=== PATIENT | male | born 1945 | race Caucasian/White ===

== ENCOUNTER 2016-06-16 00:02 | Emergency (ER) | payer BC, MEDICARE ==
[2016-06-16] MEDS ORDERED: Aspirin Low Dose CHEW TAB* 81 MG PO ONE (00:38)
[2016-06-16] MEDS ORDERED: Morphine INJ* 4 MG/ML 1 ML CARPUJECT IV ONE (00:48)
[2016-06-16 00:51] LABS: Hematocrit 43 % (42-52); Hemoglobin 14.6 g/dl (14.0-18.0); Mean Corpuscular HGB Conc 34 g/dl (31-36); Mean Corpuscular Hemoglobin 32 pg (27-31); Mean Corpuscular Volume 93 fL (80-94); Mean Platelet Volume 7 um3 (7.4-10.4); Red Blood Count 4.62 10^6/ul (4.0-5.4); Red Cell Distribution Width 14 % (10.5-15); White Blood Count 7.4 10^3/ul (3.5-10.8)
[2016-06-16 01:02] LABS: BUN/Creatinine Ratio 8.9 (8-20); Calcium 9.2 mg/dL (8.6-10.3); EGFR African American 124.7 (>60); Globulin 2.8 g/dL (2-4); Potassium 3.5 mmol/L (3.5-5.0); Total Bilirubin 0.4 mg/dL (0.2-1.0); Total Protein 6.8 g/dL (6.4-8.9)
[2016-06-16 01:04] LABS: Troponin I 0.02 ng/mL (<0.04)
--- NOTE | 2016-06-16 01:14 | ED ---
Amparo Brown Claudia, scribed for Woo Escobar MD on 06/16/16 at 0009 . HPI Chest Pain - HPI Summary HPI Summary: 71 year old male presents to he ED with CP. Pt was admitted to [facility] on Jun 03, 2016 for AFib. He notes that he is experiencing similar Sx to that episode currently. Pt describes the mid-sternal CP as a dull ache and states it is currently about a 2/10. He notes pain is aggravated with deep breaths. He is being followed by Dr. Hancock whom he saw last week. Pt is also scheduled for a pace maker on Sunday. Pt takes Eliquis for PMHx of AFib. Pt noted that he thought the pain would go away when he went to bed so when it didn't he became concerned and decided to come to the ED. - History of Current Complaint Hx Obtained From: Patient Onset/Duration: Started Hours Ago - about 15:00 today, Still Present Timing: Constant Pain Scale Used: 0-10 Numeric - 2/10 Chest Pain Location: Mid Sternal Chest Pain Radiates: No Character: Dull/Aching Aggravating Factor(s): Deep Breaths Alleviating Factor(s): Nothing Associated Signs and Symptoms: Positive: Chest Pain. Negative: Fever, Chills - Allergy/Home Medications Allergies/Adverse Reactions: Allergies Allergy/AdvReac Type Severity Reaction Status Date / Time No Known Allergies Allergy Verified 05/24/16 09:31 PMH/Surg Hx/FS Hx/Imm Hx Previously Healthy: Yes Endocrine/Hematology History: Denies: Hx Diabetes, Hx Thyroid Disease Cardiovascular History: Denies: Hx Hypertension, Hx Pacemaker/ICD, Hx Peripheral Vascular Disease Respiratory History: Denies: Hx Asthma, Hx Chronic Obstructive Pulmonary Disease (COPD) GI History: Denies: Hx Ulcer History: Denies: Hx Renal Disease Musculoskeletal History: Denies: Hx Arthritis Sensory History: Reports: Hx Contacts or Glasses Denies: Hx Hearing Aid Opthamlomology History: Reports: Hx Contacts or Glasses Neurological History: Denies: Hx Headaches, Hx Seizures, Hx Transient Ischemic Attacks (TIA) Psychiatric History: Denies: Hx Anxiety, Hx Panic Disorder - Surgical History Surgery Procedure, Year, and Place: 2 HERNIA SURGERYS Infectious Disease History: Denies: Hx Hepatitis, Hx Human Immunodeficiency Virus (HIV) - Family History Known Family History: Positive: None, Hypertension Family History: denies cardio-vascular or clotting disorders in family lineage - Social History Occupation: Employed Full-time Lives: Alone Alcohol Use: Daily Alcohol Amount: 3 glasses wine Substance Use Type: Reports: None Smoking Status (MU): Heavy Every Day Tobacco Smoker Type: Cigarettes Have You Smoked in the Last Year: Yes Review of Systems Negative: Fever, Chills, Skin Diaphoresis Eyes: Negative ENT: Negative Positive: Chest Pain Respiratory: Negative Gastrointestinal: Negative Genitourinary: Negative Musculoskeletal: Negative Skin: Negative Neurological: Negative Psychological: Normal All Other Systems Reviewed And Are Negative: Yes Physical Exam Triage Information Reviewed: Yes Vital Signs On Initial Exam: Initial Vitals Temp Pulse Resp BP Pulse Ox 97.3 F 76 21 176/88 98 06/16/16 00:09 06/16/16 00:09 06/16/16 00:09 06/16/16 00:09 06/16/16 00:09 Vital Signs Reviewed: Yes Appearance: Positive: Well-Appearing, No Pain Distress Skin: Positive: Warm Head/Face: Positive: Normal Head/Face Inspection Eyes: Positive: YASMINE ENT: Positive: Hearing grossly normal Neck: Positive: Supple Respiratory/Lung Sounds: Positive: Clear to Auscultation, Breath Sounds Present Cardiovascular: Positive: Normal. Negative: Murmur Abdomen Description: Positive: Nontender, Soft Bowel Sounds: Positive: Present Musculoskeletal: Positive: Strength/ROM Intact Neurological: Positive: Sensory/Motor Intact, Alert, Oriented to Person Place, Time Psychiatric: Positive: Affect/Mood Appropriate Diagnostics - Vital Signs Vital Signs Temp Pulse Resp BP Pulse Ox 06/16/16 00:53 20 06/16/16 00:09 97.3 F 76 21 176/88 98 - Laboratory Lab Results: Lab Results 06/16/16 06/16/16 06/16/16 Range/Units 00:15 00:15 00:15 WBC 7.4 (3.5-10.8) 10^3/ul RBC 4.62 (4.0-5.4) 10^6/ul Hgb 14.6 (14.0-18.0) g/dl Hct 43 (42-52) % MCV 93 (80-94) fL MCH 32 H (27-31) pg MCHC 34 (31-36) g/dl RDW 14 (10.5-15) % Plt Count 243 (150-450) 10^3/ul MPV 7 L (7.4-10.4) um3 Neut % (Auto) 64.6 (38-83) % Lymph % (Auto) 25.3 (25-47) % [place] % (Auto) 7.9 (1-9) % Eos % (Auto) 1.7 (0-6) % Baso % (Auto) 0.5 (0-2) % Absolute Neuts (auto) 4.7 (1.5-7.7) 10^3/ul Absolute Lymphs (auto) 1.9 (1.0-4.8) 10^3/ul Absolute Monos (auto) 0.6 (0-0.8) 10^3/ul Absolute Eos (auto) 0.1 (0-0.6) 10^3/ul Absolute Basos (auto) 0 (0-0.2) 10^3/ul Absolute Nucleated RBC 0 10^3/ul Nucleated RBC % 0.1 Sodium 135 (133-145) mmol/L Potassium 3.5 (3.5-5.0) mmol/L Chloride 107 (101-111) mmol/L Carbon Dioxide 28 (22-32) mmol/L Anion Gap 0 L (2-11) mmol/L BUN 7 (6-24) mg/dL Creatinine 0.79 (0.67-1.17) mg/dL Est GFR ( Amer) 124.7 (>60) Est GFR (Non-Af Amer) 97.0 (>60) BUN/Creatinine Ratio 8.9 (8-20) Glucose 84 (70-100) mg/dL Lactic Acid 1.0 (0.5-2.0) mmol/L Calcium 9.2 (8.6-10.3) mg/dL Total Bilirubin 0.40 (0.2-1.0) mg/dL AST 16 (13-39) U/L ALT 10 (7-52) U/L Alkaline Phosphatase 50 (34-104) U/L Troponin I 0.02 (<0.04) ng/mL Total Protein 6.8 (6.4-8.9) g/dL Albumin 4.0 (3.2-5.2) g/dL Globulin 2.8 (2-4) g/dL Albumin/Globulin Ratio 1.4 (1-3) Pertinent Lab Values Are: WNL Result Diagrams: 06/16/16 00:15 06/16/16 00:15 Lab Statement: Any lab studies that have been ordered have been reviewed, and results considered in the medical decision making process. - Radiology CHEST XRAY Xray Interpretation: No Acute Changes Radiology Interpretation Completed By: ED Physician - EKG 00:05 Cardiac Rate: NL EKG Rhythm: Sinus Rhythm - 74 beats/min EKG Interpretation: Left Anterior Hemiblock Re-Evaluation - Re-Evaluation First Eval Re-Evaluation Time: 04:15 - pt pain free, trop neg x 2 will d/c f/u pcp Change: Improved Chest Pain Course/Dx - Course Assessment/Plan: Pt presents with CP. After troponin measurements within nml limits, and a CXR and EKG within nml limits. Pt is agreeable with plan to be d/ c home with follow-up appt with Dr. Hancock. - Diagnoses Provider Diagnoses: Chest pain Discharge - Discharge Plan Condition: Improved Disposition: HOME Patient Education Materials: Chest Pain (ED) Referrals: Vitaly Hancock MD [Medical Doctor] - 2 Days (Please follow-up) The documentation as recorded by the Amparo lazar Claudia accurately reflects the service I personally performed and the decisions made by Shawn ohara David, MD.
[2016-06-16 02:12] LABS: Magnesium 2.2 mg/dL (1.9-2.7)
[2016-06-16 04:26] VITALS: BP 178/86
--- NOTE | 2016-06-16 07:32 | RAD ---
INDICATION: Chest pain COMPARISON: Similar chest x-ray dated June 03, 2016 TECHNIQUE: PA and lateral views of the chest were obtained. FINDINGS: The heart and mediastinum are normal in size and contour. Similar to the prior chest x-ray the lungs are hyperaerated, the diaphragm flattened and there is an enlarged retrosternal airspace. Multifocal subcentimeter round densities seen throughout both lungs are most consistent with calcified granulomas, similar in appearance to the previous chest x-ray. Coarse calcification overlying the bilateral tish is consistent with calcified granulomatous change of the lymph nodes. Otherwise the lungs are grossly clear. There is no evidence of large pleural effusion. Visualized bones are normal for the patient's age. There is no radiographic evidence of free air beneath the diaphragm IMPRESSION: CHRONIC FINDINGS INCLUDE STIGMATA OF CHRONIC OBSTRUCTIVE PULMONARY DISEASE AND APPEARANCE OF CALCIFIED GRANULOMATOUS DISEASE.
== END 2016-06-16 04:31 | disposition home or self-care (01) ==
LOC: ED 00:02
DX: R07.9 Chest pain, unspecified (principal); F17.210 Nicotine dependence, cigarettes, uncomplicated
CPT/HCPCS: 36415; 71020; 80053; 83605; 83735; 84484; 85025; 93005; 96374; 99283; A9270-GY; J2270

== ENCOUNTER 2016-06-20 08:09 | Observation (INO) | payer BC, MEDICARE ==
[2016-06-20] MEDS ORDERED: Diazepam TAB(*) 5 MG ONE (08:47)
[2016-06-20] MEDS ORDERED: ceFAZolin VIAL 1 GM in NS *SYRINGE * * 10 ML ONE (09:00)
[2016-06-20] MEDS ORDERED: ceFAZolin 2 GM PREMIX (*) 2 GM/50 ML BAG IVPB ONE (09:00)
[2016-06-20] MEDS ORDERED: Lidocaine 1% INJ* 10 MG/ML 30 ML SDV ONE (09:20)
[2016-06-20] MEDS ORDERED: Midazolam* 1 MG/ML 5 ML VIAL (5 MG) ONE (09:22)
[2016-06-20] MEDS ORDERED: fentaNYL* 50 MCG/ML 2 ML VIAL (100 MCG VIAL) ONE (09:22)
[2016-06-20] MEDS ORDERED: Acetaminophen TAB* 325 MG PO PRN ×2 (10:35→10:43)
[2016-06-20] MEDS ORDERED: oxyCODONE/Acetamin 5/325 MG* TAB PO PRN (10:35)
[2016-06-20] MEDS ORDERED: Nicotine PATCH 21 MG/24 HR* PATCH ONE (11:12)
--- NOTE | 2016-06-20 11:59 | RAD ---
Indication: Post pacemaker placement. Comparison: June 16, 2016 Technique: Upright AP 1115 hours Report: RIGHT atrial and RIGHT ventricular level pacemaker leads extend from the newly placed LEFT chest wall pacemaker. Negative for pneumothorax. Mild RIGHT basilar subsegmental atelectasis. Negative for pleural effusions. Negative for cardiomegaly. Unremarkable central pulmonary vasculature. IMPRESSION: Mild RIGHT basilar atelectasis. No evidence for pneumothorax or pulmonary edema post dual chamber pacemaker placement.
--- NOTE | 2016-06-20 12:17 | OP ---
DATE OF OPERATION: 06/20/2016 - ROOM #442 DATE OF : 1945. SURGEON: Cliff Campo MD. ANESTHESIA: Local anesthesia with conscious sedation. PRE-OP DIAGNOSIS: Atrial fibrillation, sick sinus syndrome. POST-OP DIAGNOSIS: Atrial fibrillation, sick sinus syndrome. OPERATIVE PROCEDURE: Dual chamber pacemaker implantation. ESTIMATED BLOOD LOSS: Nil. COMPLICATIONS: None. INDICATION: The patient is a 71-year-old gentleman who was recently admitted to the hospital with atrial fibrillation. The patient had significant pauses after conversion from atrial fibrillation to sinus rhythm. At one point, he had a 13 second pause. Permanent pacemaker implantation was recommended. DESCRIPTION OF PROCEDURE: The patient was brought to the operating room in a fasting state. Informed consent had been obtained prior to the procedure. All labs have been reviewed. The patient was placed supine on the procedure table. His left deltopectoral area was cleaned and draped in the usual fashion. One percent Lidocaine was used for local anesthesia. Under ultrasound guidance, the axillary vein was entered via a modified Seldinger technique and a guidewire was placed. A second guidewire was placed under same technique. A 3 cm incision was made in the pectoral area and blunt dissection was carried down to the pectoral fascia. A pocket was formed for the pacemaker. Over the first guidewire, a 7-Macanese sheath introducer was placed through which a right ventricular lead was advanced to the RV apex. The right ventricular lead is a Medtronic model 5076, serial number [id number]. It had an R-wave sensitivity of 8.7, impedance 1,154 ohms, a threshold 1 volt at 0.5 msec. The ventricular lead was sutured to the pectoral fascia using 0 silk. Over the second guidewire , a 7-Macanese sheath introducer was placed through which a right atrial lead was advanced to the high right atrium. The right atrial lead is a Medtronic, model 5076, serial number [id number]. It had a P-wave sensitivity of 1.7, impedance 613 ohms, a threshold of 0.9 volts at 0.5 msec. The atrial lead was then sutured to the pectoral fascia using 0 silk. The pocket was flushed with antibiotic infused normal saline and a generator was attached appropriately to the atrial and ventricular leads. The generator is a MedCohuman model A2DR01, serial number [id number]. The device was placed into the pocket. The surgical incision was closed in three layers. The subcutaneous tissue was closed with 2- 0 and 3-0 absorbable sutures. The skin was closed with alpa. The pacemaker was then interrogated via an external analyzer before sterile field was broken. The device was noted to be functioning normally. The patient was returned to the holding area in stable condition. THIS IS AN MRI COMPATIBLE DEVICE. [id number]/[facility] #: [id number] [facility] CENTERKrystian
[2016-06-20] MEDS: Cephalexin CAP* 250 MG PO SCH ×3 (13:04→21:06)
[2016-06-20] MEDS ORDERED: Nicotine Patch Removal NOTE PATCH OFF SCH (21:00)
[2016-06-20] MEDS: Dronedarone TAB* 400 MG PO SCH (21:06)
[2016-06-21 07:41] VITALS: BP 150/87
[2016-06-21] MEDS ORDERED: Nicotine PATCH 21 MG/24 HR* PATCH TRANSDERM SCH (08:00)
[2016-06-21] MEDS: Dronedarone TAB* 400 MG PO SCH (08:01)
[2016-06-21] MEDS: Cephalexin CAP* 250 MG PO SCH (08:01)
--- NOTE | 2016-06-21 08:48 | RAD ---
INDICATION: Device implant COMPARISON: June 20, 2016 TECHNIQUE: PA and lateral dual-energy views were obtained. FINDINGS: Bones/Soft Tissues: There are no acute bony findings. There is recent left cardiac pacemaker placement. There is no interval change Cardiomediastinal: The cardiomediastinal silhouette is normal. Lungs: There are no infiltrates. There are calcified granulomas. There is hyperinflation with mild chronic interstitial change. There is no pneumothorax. Pleura: There are no pleural effusions. Other: None IMPRESSION: LEFT CARDIAC PACEMAKER PLACEMENT. NO PNEUMOTHORAX. NO VASCULAR CONGESTION.
[2016-06-21] MEDS ORDERED: Magnesium Oxide TAB* 400 MG PO SCH (09:00)
[2016-06-21] MEDS ORDERED: Influenza VAC *QUAD* 2016-17* 0.5 ML SYRINGE IM ONE (09:00)
--- NOTE | 2016-06-21 21:32 | DS ---
DISCHARGE SUMMARY: DATE OF ADMISSION: 06/20/16 DATE OF DISCHARGE: 06/21/16 HISTORY OF PRESENT ILLNESS: Mr. Perez is a 71-year-old with a history of paroxysmal atrial fibrillation who was additionally found to have sick sinus syndrome with pauses of 9 to 13 seconds post cardioversion (slow sinus node recovery time). The patient was admitted for elective dual chamber pacemaker implantation. He had held his Naprosyn and Eliquis prior to the procedure. On 06/20/16, the patient underwent pacemaker implantation without incident ( Medtronic Advisa DR MRI compatible device.) See history of present illness for full details of past medical history. Past medical history includes paroxysmal atrial fibrillation, presumed COPD. He is an active smoker. He drinks 3 to 4 glasses of wine a day as well. PHYSICAL EXAMINATION: On exam the day of discharge, the patient is 5 feet 11 inches, weighs 162 pounds with a BMI of 23. T-max 98.1. The patient is in sinus rhythm, occasional PVCs and some pseudofusion beats in the ventricles. Blood pressure 150/87, pulse in 60s to 80s. General appearance: Tall, lean older gentleman, kyphoscoliosis incidentally noted, in no acute distress. Psychologically, calm, cooperative, pleasant. Neurologically, awake, alert, oriented to person, place and time. Cranial nerves II through XII intact. Grossly normal sensory and motor function in the upper and lower extremities. Gait is normal in the room. Skin: Warm and dry. The incision in the left subclavian fossa is free of any evidence of infection. There is a small hematoma in the anterior portion of the pocket. No active bleeding in the incision and no ecchymosis. HEENT: Mucous membranes moist. Neck without appreciable increased JVP. Breath sounds have some fine wheezing. Coronary: S1, S2 regular without murmurs or rubs. Prominent PMI with no evidence of diaphragmatic pacing. Abdomen: Active bowel sounds. Soft and nontender. Lower extremities: Marked superficial varicosities noted but otherwise unremarkable. LABORATORY DATA: From 06/16/16 showed white count 7.4, hemoglobin 14.6 and platelets 243. Sodium 135, potassium 3.5, chloride 107, BUN 7, creatinine 0.79 , glucose 84. HOSPITAL COURSE: Overnight the patient did well, minimal incisional tenderness. He has been walking this morning and feeling well. No shortness of breath. IMAGING STUDIES: The patient's chest x-ray shows hyperinflation consistent with COPD. Lead placement is good. Pacemaker interrogation today confirms the use of Medtronic Advisa DR. He was re- programmed from DDD to AAI/DDD with a lower rate of 60 beats a minute and upper tracking rate of 130 beats per minute. Overnight, he atrially paced 39% of the time and ventricularly paced less than 0.1% of the time. P-waves are sensed at 3 millivolts with an atrial impedance of 437 ohms and atrial pacing threshold of 0.5 volts at 0.4 milliseconds. R-waves are sensed at 11 millivolts with a ventricular lead impedance of 627 ohms and a ventricular pacing threshold of 0.75 volts at 0.4 milliseconds. There were no dysrhythmias overnight. In summary, Mr. Perez is a 71-year-old gentleman who underwent dual chamber pacemaker implantation yesterday. He is postop day #1 with good pacemaker function, very small hematoma noted. He will be discharged on Tylenol p.r.n., Keflex 250 mg four times a day, Multaq 400 mg twice a day, magnesium oxide 400 mg a day, nicotine patch, Tylenol with Codeine p.r.n., and he will resume his Eliquis in 48 hours. Smoking cessation was advised personally by me but the patient states it is his only vivian in life. He will follow up with Dr. Campo in 1 week for wound check and then follow back up with Dr. Hancock in approximately a month. CC: Karin Rose MD; Lalo Hancock DO * [id number]/[facility] #: [id number] [facility]
== END 2016-06-21 10:06 | disposition home or self-care (01) ==
LOC: CHICATH 08:09 → MEDTELE 10:35 → INTOOBSV 10:35
PROVIDERS: ADMIT Specialist; ATTEND Specialist
DX: I49.5 Sick sinus syndrome (principal); I48.0 Paroxysmal atrial fibrillation; Z79.01 Long term (current) use of anticoagulants; E83.42 Hypomagnesemia; Z79.899 Other long term (current) drug therapy; F17.210 Nicotine dependence, cigarettes, uncomplicated; Z23 Encounter for immunization; R94.31 Abnormal electrocardiogram [ECG] [EKG]; I44.4 Left anterior fascicular block
CPT/HCPCS: 33208; 71010; 71020; 90471; 90686; 93005; 99406; A9270-GY; C1785; C1898; G0008; G0378; J0690; J2250; J3010

== ENCOUNTER 2016-09-19 12:27 | Inpatient (IN) | payer MEDICARE ==
[2016-09-19 13:31] LABS: Mean Platelet Volume 7 um3 (7.4-10.4)
[2016-09-19] MEDS ORDERED: fentaNYL* 50 MCG/ML 2 ML VIAL (100 MCG VIAL) ONE (13:50)
[2016-09-19] MEDS ORDERED: Morphine INJ* 10 MG/ML 1 ML SYRINGE ONE (16:01)
--- NOTE | 2016-09-19 16:08 | RAD ---
INDICATION: Shortness of breath status post lung biopsy COMPARISON: Chest x-ray dated June 21, 2016 TECHNIQUE: PA and lateral views of the chest were obtained during inspiration and expiration FINDINGS: There is a moderate right-sided pneumothorax measuring approximately 3 cm from the lateral chest wall at approximately the sixth rib level during inspiration. On expiration views the pneumothorax measures 3.6 cm at approximately the same level. There is no substantial mediastinal shift relative to the June 21, 2016 chest x-ray. IMPRESSION: MODERATE SIZE PNEUMOTHORAX WITHOUT SIGNIFICANT MEDIASTINAL SHIFT DESCRIBED ABOVE.
--- NOTE | 2016-09-19 16:35 | RAD ---
CPT II Codes: 6100F CT-GUIDED LUNG BIOPSY. INDICATION: Slowly growing right upper lobe pulmonary nodule in a patient with a smoking history. COMPARISON: CT of the chest 09/05/2016 and 06/03/2016 PROCEDURE NOTE AND IMAGING FINDINGS: The benefits and risks of the procedure explained to the patient. The patient consented to the exam. The patient was brought to the CT suite and positioned in the supine position. A time out was preformed with the technologist and nursing staff. At the onset of the procedure approximately 10 mL of blood was aspirated from the patient's IV. This blood sample was put aside with the tip of the syringe pointed upward so that the blood can settle within the syringe lumen. The patient was prepped and draped in the usual sterile fashion. The patient was given intravenous intravenous fentanyl and local anesthesia with 1% lidocaine. Preliminary CT imaging identified the pulmonary nodule in the right upper lobe. Using CT guidance the mass in question was accessed with an 18-gauge needle. With the 18-gauge needle serving as a "parent needle", fine-needle aspiration was acquired with a 21-gauge Chiba needle. The sample was provided to the attending cytopathologist and the attending pathologist indicated that the samples were adequate for diagnosis. According to the same technique 3 additional fine-needle aspirations were acquired and provided to the cytopathologist. The non-dependent serous layer from the previously acquired blood sample was discarded leaving behind approximately 7 mL of the patient's blood products in the syringe. The syringe was attached to the outer biopsy needle and as the needle was retracted across the pleural space the "blood patch" was gently injected. The patient tolerated the procedure well without incident. Postprocedural CT does not demonstrate a large pneumothorax or excessive amount of bleeding. The patient was transported to the holding area in stable condition for 1 hour of observation. IMPRESSION: 1. CT guided FNA of right upper lobe pulmonary nodule as described. 2. To reduce the likelihood of pneumothorax, a "blood patch" was injected through the outer needle at the conclusion of the procedure.
--- NOTE | 2016-09-19 16:57 | RAD ---
INDICATION: Persistent shortness of breath status post lung biopsy COMPARISON: Chest x-ray from same date acquired at 1547 hours. TECHNIQUE: AP views of the chest in inspiration and expiration were obtained on September 19, 2016 at 1642 hours. FINDINGS: There is been a small interval increase in the size of the patient's right-sided pneumothorax with the width of the pneumothorax measuring approximately 4.6 cm increased from 3.6 cm at approximately the right sixth rib level. IMPRESSION: INTERVAL INCREASE IN SIZE OF PNEUMOTHORAX.
--- NOTE | 2016-09-19 17:49 | RAD ---
INDICATION: Status post chest tube placement for pneumothorax following lung biopsy. COMPARISON: Same day chest x-ray acquired at 1642 hours TECHNIQUE: Inspiration and expiration AP views of the chest were acquired at 1734 hours. FINDINGS: There has been interval placement of a right-sided chest tube at approximately the fourth rib level. There is been interval resolution of the previously enlarging pneumothorax. Right costophrenic angle blunting is likely secondary to a small degree of pleural fluid. IMPRESSION: INTERVAL RESOLUTION OF RIGHT-SIDED PNEUMOTHORAX AFTER CHEST TUBE PLACEMENT.
[2016-09-19] MEDS ORDERED: Acetaminophen TAB* 325 MG PO PRN (18:54)
[2016-09-19] MEDS ORDERED: traMADol TAB* 50 MG PO PRN (18:54)
[2016-09-19] MEDS: oxyCODONE/Acetamin 5/325 MG* TAB PO PRN (19:47)
[2016-09-19] MEDS: Dronedarone TAB* 400 MG PO SCH (19:48)
[2016-09-19] MEDS ORDERED: Nicotine PATCH 21 MG/24 HR* PATCH TRANSDERM SCH (20:00)
[2016-09-19] MEDS ORDERED: Apixaban* 5 MG TAB PO SCH (21:00)
--- NOTE | 2016-09-19 23:03 | RAD ---
CPT II Codes: 6045F INDICATION: Enlarging pneumothorax status post right upper lobe nodule biopsy COMPARISON: Serial chest x-rays acquired on the same day. FLUOROSCOPY TIME: 11 seconds ANESTHESIA AND OTHER PERIOPERATIVE MEDICATIONS: 1% lidocaine locally. Intravenous morphine. PROCEDURE NOTE AND IMAGING FINDINGS: The benefits and risks of the procedure explained to the patient. The patient consented to the procedure. The patient was brought to the fluoroscopy suite and positioned in the supine position with the head of the table tilted up approximately 45 degrees. Prior to prepping the patient the pneumothorax, planned intercostal level and the percutaneous location was identified with fluoroscopy. The planned percutaneous site was marked externally on the patient. A formal time out was preformed with the technologist and nursing staff. The intended percutaneous chest tube site was prepped and draped in the usual sterile fashion. The patient was given intravenous sedation and local anesthesia with 1% lidocaine. The intended percutaneous site was anesthetized locally with 1% lidocaine with care taken to anesthetize the entire tract to the intercostal space. A small skin neck was made with a #11 scalpel. According to the trocar technique an 8-Nigerian catheter was inserted into the pleural space under fluoroscopic guidance. The polyurethane catheter was advanced as the metal needle was slowly removed. Once in appropriate intrapleural position a three-way stopcock was attached to the 8-Nigerian catheter and utilizing the stopcock and 60 mL syringe almost all of the extrapleural air was aspirated from the pleural space. Final image confirmation demonstrated the catheter was in appropriate position with the tip directed towards the lung apex. Utilizing nonabsorbable suture a "pursestring" suture was tied around the percutaneous catheter exit site to ensure and air seal and then the catheter was secured in place with a "Gal sandal" suture. The percutaneous chest tube was that patchy to a Heimlich valve. The site was dressed with sterile gauze and Tegaderm. The patient tolerated the procedure well. IMPRESSION: Uncomplicated percutaneous chest tube placement with fluoroscopic guidance as described in the body of the report. PLAN: 1. Overnight admission with chest tube attached to a Heimlich valve. 2. Will attempt clamping tube trial the following morning assuming the morning chest x-ray is free from pneumothorax.
--- NOTE | 2016-09-19 23:36 | HP ---
HOSPITAL MEDICINE HISTORY AND PHYSICAL: DATE OF ADMISSION: 09/19/16 PRIMARY CARE PHYSICIAN: Dr. Karin Rose. ATTENDING PHYSICIAN: Dr. Mor Ochoa *(dictation provided by Tiarra Diana NP). CHIEF COMPLAINT: Pneumothorax, status post lung biopsy. HISTORY OF PRESENT ILLNESS: Mr. Perez is a 71-year-old male with a past medical history of smoking with 2 pack a day smoking pattern now as well as atrial fibrillation and a pacemaker who presented today to the hospital for a lung biopsy for a lung nodule in his right upper lobe which had increased in size. The patient states that prior to this procedure, he was feeling well with no acute complaints. After the procedure, the patient had a chest x-ray which confirmed pneumothorax. Pneumothorax was persistent and the patient had a PleurX catheter placed by Dr. De La O with 2 repeat chest x-rays, last chest x- ray at 5:20 showing interval resolution of the right-sided pneumothorax. PAST MEDICAL HISTORY: 1. Atrial fibrillation, on Eliquis and Multaq. 2. History of hernia repair surgery. 3. History of pacemaker for AFib. 4. Right upper lobe lung nodule. MEDICATIONS: 1. Apixaban 5 mg p.o. b.i.d. 2. Dronedarone 400 mg p.o. b.i.d. 3. Magnesium oxide 400 mg p.o. daily. ALLERGIES: No known drug allergies. FAMILY HISTORY: The patient states all of his family lived till old age. SOCIAL HISTORY: The patient is a 2 pack a day smoker. He has no intention of quitting smoking. He says "everyone dies of something." No report of alcohol or drug use. He lives alone. He says that his sister would be his healthcare proxy. REVIEW OF SYSTEMS: A 14-point review of systems was completed with Mr. Perez and all those not mentioned above are negative. PHYSICAL EXAMINATION GENERAL: Mr. Perez in sitting up in the bed. He is in no acute distress. He does complain of some pain in his right back. VITAL SIGNS: Pending. LUNGS: Clear to auscultation bilaterally with no accessory muscle use and good aeration. Pleurx catheter in situ to right anterior chest wall. HEART: S1, S2. No murmur, rub, or gallop and regular. ABDOMEN: Soft, nontender with bowel sounds positive x4. EXTREMITIES: No cyanosis or edema. NEUROLOGIC: Alert and oriented x3. Moves all extremities equally. There is no facial asymmetry or focal weakness. Extraocular movements are intact. SKIN: Intact. LABORATORY DATA AND DIAGNOSTIC STUDIES: Platelet count 189, INR 0.91. Final chest x-ray at 5:20 today shows interval resolution of right-sided pneumothorax. ASSESSMENT: Mr. Perez is a 71-year-old male with past medical history of atrial fibrillation and prolonged smoking who presented to the hospital today for biopsy of an enlarging right upper lobe lung nodule. After the biopsy, the patient did develop a pneumothorax which has resolved with placement of PleurX catheter by Dr. De La O. Our plan is as follows: 1. Right-sided pneumothorax, now resolved with PleurX catheter. Plan to observe overnight. I appreciate the support from Dr. De La O who will be seeing him again tomorrow. The patient will have pain medication p.r.n. 2. Atrial fibrillation: Plan to continue Multaq, but hold Eliquis until approved per Dr. De La O. 3. Code status is full code. 4. DVT prophylaxis with SCDs. 5. History of smoking: Smoking cessation counseling was offered, but the patient was clear that he has no plans of stopping smoking, but did ask for nicotine patch. TIME SPENT: Approximately 60 minutes were spent on the admission of this patient, more than half time spent with the patient at the bedside reviewing the events leading up to this hospitalization, performing the physical examination, and reviewing the plan of care. TIARRA DIANA NP CC: Dr. Karin Rose* [id number]/[facility] #: [id number] ROSENDA
[2016-09-20] MEDS: oxyCODONE/Acetamin 5/325 MG* TAB PO PRN ×5 (01:33→21:58)
[2016-09-20] MEDS ORDERED: Nicotine Patch Removal NOTE PATCH OFF SCH ×2 (08:00→21:00)
[2016-09-20] MEDS: Magnesium Oxide TAB* 400 MG PO SCH (08:04)
[2016-09-20] MEDS: Dronedarone TAB* 400 MG PO SCH ×2 (08:05→21:10)
[2016-09-20] MEDS: Nicotine PATCH 21 MG/24 HR* PATCH TRANSDERM SCH (08:05)
--- NOTE | 2016-09-20 08:39 | RAD ---
HISTORY: Follow-up pneumothorax COMPARISONS: September 19, 2016 VIEWS: 2: Frontal inspiratory and expiratory dual-energy and lateral views of the chest. FINDINGS: CARDIOMEDIASTINAL SILHOUETTE: The cardiomediastinal silhouette is normal. HAFSA: The hafsa are normal. PLEURA: There has been interval reaccumulation of a small right-sided hydropneumothorax along the right lung base. A right-sided chest tube is noted LUNG PARENCHYMA: There are calcified granulomas of the lung ABDOMEN: The upper abdomen is clear. There is no subphrenic gas. BONES AND SOFT TISSUES: No bone or soft tissue abnormalities are noted. OTHER: A left-sided pacemaker is noted IMPRESSION: INTERVAL REACCUMULATION OF A SMALL RIGHT HYDROPNEUMOTHORAX ALONG THE RIGHT LUNG BASE. A CHEST TUBE IS NOTED.
--- NOTE | 2016-09-20 10:48 | RAD ---
HISTORY: Follow-up pneumothorax COMPARISONS: September 20, 2016 8:28 AM VIEWS:1: Frontal inspiratory and expiratory views of the chest at 10:30 AM FINDINGS: LINES AND TUBES: There is a right-sided chest tube. Left-sided pacemaker is noted. CARDIOMEDIASTINAL SILHOUETTE: The cardiomediastinal silhouette is normal for portable technique. PLEURA: There is a small right hydropneumothorax along the right lung base. This is slightly decreased in size compared to the earlier examination. LUNG PARENCHYMA: The lungs are clear. ABDOMEN: The upper abdomen is clear. There is no subphrenic gas. BONES AND SOFT TISSUES: No bone or soft tissue abnormalities are noted. IMPRESSION: PERSISTENT BUT SLIGHTLY IMPROVED SMALL RIGHT HYDROPNEUMOTHORAX.
--- NOTE | 2016-09-20 14:10 | PN ---
Progress Note - Progress Note SOAP: Date of Service: 09/20/16 Subjective: 5/10 right posterior chest pain radiating anterioroly exacerbated with deep inspiration. + sense of SOB. no chest pain. no dizziness, confusion or other [employer] symptoms. Objective: [Latest chest xray shows persistent small PTX at right lung base with chest tube in appropriate position. ] Selected Entries 09/20/16 09/20/16 11:18 13:22 Temperature 97.7 F Temperature Oral Source Pulse Rate 65 Respiratory 18 Rate Blood Pressure 143/70 (mmHg) Blood Pressure 88 Mean O2 Sat by Pulse 95 Oximetry Patient on Room Yes Air NAD, AAO x 3 Chest tube dressing is CDI and appears intact Connected to Pleurovac and wall suction RRR Left lung CTAB, Rhonci heard over right posterior lung Assessment: 71 YOM POD #1 RUL percutaneous biopsy complicated by PTX and followed with 8 Malay PTX tube, now with persistent small right PTX. Plan: 1. Surgery to evaluate for potential reposition or upsize of chest tube. 2. Case discussed over the telephone with Dr. Fernandez and Don. 3. Follow pathology report from lung biopsy.
--- NOTE | 2016-09-20 15:32 | RAD ---
HISTORY: Follow-up pneumothorax COMPARISONS: September 20, 2016 at 9:25 AM VIEWS: 2: Frontal dual-energy and lateral views of the chest. FINDINGS: CARDIOMEDIASTINAL SILHOUETTE: The cardiomediastinal silhouette is normal. HAFSA: The hafsa are normal. PLEURA: Again noted is a small right hydropneumothorax along the right lung base. LUNG PARENCHYMA: Calcified granulomas are noted. There is hyperinflation. ABDOMEN: The upper abdomen is clear. There is no subphrenic gas. BONES AND SOFT TISSUES: No bone or soft tissue abnormalities are noted. OTHER: A right-sided chest tube is noted. A left-sided pacemaker is noted. IMPRESSION: STABLE SMALL RIGHT HYDROPNEUMOTHORAX
--- NOTE | 2016-09-20 17:39 | PN ---
Subjective Date of Service: 09/20/16 Interval History: Pain control OK. Not SOB. Objective Active Medications: Acetaminophen (Tylenol Tab*) 650 mg PO Q6H PRN PRN Reason: PAIN Dronedarone (Multaq Tab*) 400 mg PO BID [facility] Last Admin: 09/20/16 08:05 Dose: 400 mg Magnesium Oxide (Magox 400 Tab*) 400 mg PO DAILY [facility] Last Admin: 09/20/16 08:04 Dose: 400 mg Nicotine (Nicotine Patch 21 Mg/24 Hr*) 1 patch TRANSDERM DAILY [facility] Last Admin: 09/20/16 08:05 Dose: 1 patch Oxycodone/Acetaminophen (Percocet 5/325 Tab*) 1 tab PO Q4H PRN PRN Reason: PAIN Last Admin: 09/20/16 13:22 Dose: 1 tab Pharmacy Profile Note (Nicotine Patch Removal Note*) 1 note PATCH OFF 2100 [facility] Tramadol HCl (Ultram*) 50 mg PO Q6H PRN PRN Reason: PAIN Vital Signs 09/19/16 09/19/16 09/19/16 19:19 19:47 19:54 Temperature 98.3 F Pulse Rate 66 Respiratory 18 18 18 Rate Blood Pressure 181/99 (mmHg) O2 Sat by Pulse 100 Oximetry 09/19/16 09/19/16 09/20/16 21:47 23:26 01:33 Temperature 97.7 F Pulse Rate 66 Respiratory 18 20 20 Rate Blood Pressure 156/90 (mmHg) O2 Sat by Pulse 95 Oximetry 09/20/16 09/20/16 09/20/16 03:33 04:16 07:38 Temperature 97.5 F 98.3 F Pulse Rate 62 69 Respiratory 18 20 18 Rate Blood Pressure 141/81 158/78 (mmHg) O2 Sat by Pulse 97 93 Oximetry 09/20/16 09/20/16 09/20/16 08:00 08:04 10:04 Temperature Pulse Rate Respiratory 20 18 20 Rate Blood Pressure (mmHg) O2 Sat by Pulse 93 Oximetry 09/20/16 09/20/16 09/20/16 11:18 13:22 15:19 Temperature 97.7 F 98.0 F Pulse Rate 65 67 Respiratory 16 18 22 Rate Blood Pressure 143/70 151/80 (mmHg) O2 Sat by Pulse 95 96 Oximetry 09/20/16 09/20/16 15:22 16:00 Temperature Pulse Rate Respiratory 18 Rate Blood Pressure (mmHg) O2 Sat by Pulse 95 Oximetry Oxygen Devices in Use Now: None Appearance: Alert, sitting up in bed. In good spirits. Looks comfortable at rest. Eyes: No Scleral Icterus Ears/Nose/Mouth/Throat: Clear Oropharnyx, Mucous Membranes Moist Neck: NL Appearance and Movements; NL JVP, No Thyroid Enlargement, Masses Respiratory: Symmetrical Chest Expansion and Respiratory Effort, Clear to Auscultation, Clear to Percussion, - - Chest tube R anterior chest Cardiovascular: NL Sounds; No Murmurs; No JVD, RRR, No Edema, - Extremities: No Edema, No Clubbing, Cyanosis, - Skin: No Rash or Ulcers, No Nodules or Sclerosis, - Neurological: Alert and Oriented x 3, NL Sensation Result Diagrams: 09/19/16 13:15 Microbiology and Other Data: Microbiology 09/19/16 15:05 Wound Gram Stain - Final Tissue - Other Tissue Culture - Preliminary No Growth Day 1 Acid Fast Bacilli Smear - Final Assess/Plan/Problems-Billing Assessment: - Patient Problems (1) Pneumothorax Current Visit: Yes Status: Acute Code(s): J93.9 - PNEUMOTHORAX, UNSPECIFIED SNOMED Code(s): 60096169 Comment: Discussed with Dr. De La O 09/19 and 09/20. Dr. Fernandez will evaluate for better evacuation of pleural air. (2) Atrial fibrillation with rapid ventricular response Current Visit: No Status: Acute Code(s): I48.91 - UNSPECIFIED ATRIAL FIBRILLATION SNOMED Code(s): 013301068312826 Comment: Apixaban on hold. Continue dronedarone. (3) Lung nodule Current Visit: Yes Status: Acute Code(s): R91.1 - SOLITARY PULMONARY NODULE SNOMED Code(s): 184811430 Comment: Path report pending. (4) Tobacco abuse Current Visit: No Status: Chronic Code(s): Z72.0 - TOBACCO USE SNOMED Code (s): 654533563 Comment: Patient not interested in quitting.
[2016-09-20] MEDS ORDERED: Nicotine Inhaler* 10 MG AMP INH PRN (21:38)
--- NOTE | 2016-09-20 21:46 | RAD ---
Indication: Follow-up pneumothorax. Single frontal view of the chest performed at 2003 hours was reviewed. Comparison is made with previous exam dated earlier the same day. Right chest tube is in place. No pneumothorax is noted. Left lung field is clear. IMPRESSION: Right pneumothorax appears to further decreased when compared to previous exam of September 20, 2016.
[2016-09-20] MEDS ORDERED: Mouth Piece, Nicotine* 1 EACH CARTRIDGE INH ONE (22:00)
[2016-09-21] MEDS: oxyCODONE/Acetamin 5/325 MG* TAB PO PRN (04:46)
--- NOTE | 2016-09-21 07:53 | RAD ---
INDICATION: Pneumothorax status post lung biopsy COMPARISON: Most recent comparison chest x-ray dated September 20, 2016 acquired at 1909 hours TECHNIQUE: PA and lateral views of the chest were obtained. FINDINGS: Again seen is a 8-Faroese chest tube positioned slightly more medial relative to the previous chest tube at approximately the 3/4 intercostal space. There is a tiny persistent pneumothorax at the lateral lung base with a persistent small amount of pleural fluid blunting the costophrenic angle. The lungs are otherwise adequately aerated. There is no mediastinal shift. IMPRESSION: TINY PERSISTENT FOCUS OF PLEURAL AIR AT THE LATERAL LUNG BASE BUT REDUCED WHEN COMPARED TO THE PREVIOUS DAYS CHEST X-RAYS.
[2016-09-21 08:13] VITALS: BP 152/82
--- NOTE | 2016-09-21 09:14 | PN ---
Progress Note - Progress Note SOAP: Subjective: pt seen and examined. He feels better. Objective: af vss lungs: decre bs R>L chest tube: no air leak. CXR: small residual ptx Assessment: Resolving iatrogenic ptx Plan: D/c home with heimlich valve f/u at [facility] next week
[2016-09-21] MEDS: Dronedarone TAB* 400 MG PO SCH (09:38)
[2016-09-21] MEDS: Magnesium Oxide TAB* 400 MG PO SCH (09:38)
[2016-09-21] MEDS: Nicotine PATCH 21 MG/24 HR* PATCH TRANSDERM SCH (09:39)
--- NOTE | 2016-09-21 10:53 | DCNOTE ---
Subjective Date of Service: 09/21/16 Interval History: Denies cough, SOB. Pain is mild. He declines my offer of analgesic rx. No new c/o, anxious to go home. Objective Active Medications: Acetaminophen (Tylenol Tab*) 650 mg PO Q6H PRN PRN Reason: PAIN Dronedarone (Multaq Tab*) 400 mg PO BID [facility] Last Admin: 09/21/16 09:38 Dose: 400 mg Magnesium Oxide (Magox 400 Tab*) 400 mg PO DAILY [facility] Last Admin: 09/21/16 09:38 Dose: 400 mg Nicotine (Nicotine Patch 21 Mg/24 Hr*) 1 patch TRANSDERM DAILY [facility] Last Admin: 09/21/16 09:39 Dose: 1 patch Nicotine (Nicotine Inhaler*) 10 mg INH Q2H PRN PRN Reason: CRAVINGS Last Admin: 09/20/16 21:58 Dose: 10 mg Oxycodone/Acetaminophen (Percocet 5/325 Tab*) 1 tab PO Q4H PRN PRN Reason: PAIN Last Admin: 09/21/16 04:46 Dose: 1 tab Pharmacy Profile Note (Nicotine Patch Removal Note*) 1 note PATCH OFF 2100 [facility] Last Admin: 09/20/16 22:00 Dose: 1 note Tramadol HCl (Ultram*) 50 mg PO Q6H PRN PRN Reason: PAIN Vital Signs 09/20/16 09/20/16 09/20/16 11:18 13:22 15:19 Temperature 97.7 F 98.0 F Pulse Rate 65 67 Respiratory 16 18 22 Rate Blood Pressure 143/70 151/80 (mmHg) O2 Sat by Pulse 95 96 Oximetry 09/20/16 09/20/16 09/20/16 15:22 16:00 17:34 Temperature Pulse Rate Respiratory 18 18 Rate Blood Pressure (mmHg) O2 Sat by Pulse 95 Oximetry 09/20/16 09/20/16 09/20/16 19:34 20:17 21:58 Temperature 97.3 F Pulse Rate 76 Respiratory 20 28 16 Rate Blood Pressure 147/78 (mmHg) O2 Sat by Pulse 95 Oximetry 09/20/16 09/20/16 09/20/16 22:03 23:38 23:57 Temperature 98.0 F Pulse Rate 65 Respiratory 22 14 18 Rate Blood Pressure 137/66 (mmHg) O2 Sat by Pulse 97 Oximetry 04/09/21/16 09/21/16 04:46 06:46 07:21 Temperature 98.2 F 97.6 F Pulse Rate 64 65 Respiratory 18 16 18 Rate Blood Pressure 152/84 152/82 (mmHg) O2 Sat by Pulse 97 97 Oximetry 09/21/16 08:13 Temperature Pulse Rate Respiratory 18 Rate Blood Pressure (mmHg) O2 Sat by Pulse 97 Oximetry Oxygen Devices in Use Now: None Appearance: Alert, partly up in bed. In good spirits. Looks comfortable. Eyes: No Scleral Icterus Ears/Nose/Mouth/Throat: Clear Oropharnyx, Mucous Membranes Moist Respiratory: Symmetrical Chest Expansion and Respiratory Effort, Clear to Auscultation, Clear to Percussion Cardiovascular: NL Sounds; No Murmurs; No JVD, RRR, No Edema, - Extremities: No Edema, No Clubbing, Cyanosis, - Skin: No Rash or Ulcers, No Nodules or Sclerosis, - Neurological: Alert and Oriented x 3, NL Sensation Result Diagrams: 09/19/16 13:15 Microbiology and Other Data: Microbiology 09/19/16 15:05 Wound Gram Stain - Final Tissue - Other Tissue Culture - Preliminary No Growth Day 1 Acid Fast Bacilli Smear - Final Assess/Plan/Problems-Billing Assessment: - Patient Problems (1) Pneumothorax Current Visit: Yes Status: Acute Code(s): J93.9 - PNEUMOTHORAX, UNSPECIFIED SNOMED Code(s): 68049484 Comment: Discussed with Dr. De La O 09/19 and 09/20 and 09/21. Discussed with surgical PA 09/21. Pt will go home with a Heimlich valve and fup with Dr. Fernandez. (2) Atrial fibrillation with rapid ventricular response Current Visit: No Status: Acute Code(s): I48.91 - UNSPECIFIED ATRIAL FIBRILLATION SNOMED Code(s): 846142300286856 Comment: Resume apixaban. Continue dronedarone. (3) Lung nodule Current Visit: Yes Status: Acute Code(s): R91.1 - SOLITARY PULMONARY NODULE SNOMED Code(s): 637402401 Comment: Path report reviewed, NOT discussed with patient. I spoke with Dr. Rose today and she will have patient come to her office today to discuss the biopsy result. (4) Tobacco abuse Current Visit: No Status: Chronic Code(s): Z72.0 - TOBACCO USE SNOMED Code (s): 585133465 Comment: Patient not interested in quitting. Status and Disposition: Discharge now, fup Dr. Rose.
--- NOTE | 2016-09-21 11:06 | PN ---
Progress Note - Progress Note Note: Time spent on discharge 45 minutes.
--- NOTE | 2016-09-21 15:38 | CONS ---
CONSULTATION REPORT AND PROCEDURE REPORT: DATE OF CONSULT: DATE OF PROCEDURE: 09/20/16 HISTORY: I was contacted by [facility] to evaluate Mr. Perez, a 71 - year-old gentleman who is postprocedure day #1 from a right lung biopsy for slowly enlarging lesion. Post-biopsy, the patient was noted to have a pneumothorax and underwent placement of Heimlich valve yesterday by Dr. De La O. The patient was admitted and this was followed, it showed good improvement after the initial placement, but had worsened into this morning and the surgical service was consulted for possible placement of a large bore chest tube. The patient does complain of some right-sided chest pain as well as back pain, otherwise he is comfortable. He has good appetite. No fevers. PAST MEDICAL HISTORY: Atrial fib, on Eliquis, that has been held; and the right upper lobe nodule. PHYSICAL EXAM: The patient was well appearing, in no apparent distress, afebrile. Vital signs are stable. O2 sat of 95% on room air. Chest: Decreased breath sounds on the right. Biopsy site identified and healing well. Heimlich valve in place approximately at third intercostal space. Abdomen: Soft, nondistended, nontender. Extremities: Within normal limits. DIAGNOSTIC DATA: Chest x-ray reviewed shows a basal pneumothorax. Repeat chest x- ray did show an anterior and basal pneumothorax with the Heimlich valve more posterior. IMPRESSION: One day status post lung biopsy for suspicious tumor with postprocedure pneumothorax, not resolving with Heimlich valve. Recommendation is for replacement of this Heimlich valve with another one to see if this shows improvement and allows lung to come up. The patient will remain off of blood thinners. I outlined the details of the procedure, discussing that the patient may require still yet a larger chest tube if this Heimlich valve does not work. The patient agreed and signed consent. We spoken about the possible complications which included, but not limited to bleeding, infection, need for additional procedures, and the patient agreed. PROCEDURE REPORT: After obtaining informed consent, the right upper chest was prepped sterilely and draped. At approximately second intercostal space, injection with lidocaine was carried out. Incision was made and a Heimlich valve pneumothorax type kit was utilized and inserted into the chest, back bubbling of air was noted and the catheter was advanced apically. It was connected to the stopcock and air was easily removed from this tubing with suture to place with the provided silk suture and connected to Pleur-evac, which was connected to 20 cm of water and low continuous wall suction. The patient had positive air leak. The area was sterilely prepped and the initial Heimlich valve tube was removed and a waterproof dressing applied. The patient tolerated the procedure well. PLAN: Followup chest x-ray in an hour. The patient will remain here tonight. We will reevaluate him in the morning and possibly look towards either sending him home with Heimlich valve or possibly needing to place a larger bore chest tube in which case he would not have to spend additional days with us. The patient understands this plan and will follow closely. CC: [facility]; Dr. Gal De La O; Dr. Karin Rose* [id number]/[facility] #: [id number] ROSENDA
--- NOTE | 2016-09-22 04:25 | DS ---
Amended report to enter date of admission and correct patient account number. DISCHARGE SUMMARY: DATE OF ADMISSION: 09/20/16 DATE OF DISCHARGE: 09/21/16 HISTORY: This 71-year-old man was admitted from the emergency department when he developed a pneumothorax after percutaneous needle biopsy of a lung nodule. He was referred by Dr. Rose. The nodule has been noted to increase in size. Dr. De La O finished the procedure, but post-procedure x-ray showed a right- sided pneumothorax. Dr. De La O inserted a chest tube. The following morning, there was still some pneumothorax left. Dr. Fernandez came and repositioned the catheter, which resolved the pneumothorax; however, Dr. Fernandez decided to have the patient go home with a Heimlich valve for a few days and have it removed as an outpatient. The patient really tolerated all this quite well. He had a very mild pain and declined my offer of a home analgesic prescription. He did not require oxygen. He will resume his apixaban, which has been held for the procedure. He will be on all his usual medications. I note that the pathology report came back as adenocarcinoma. This is on the last hospital day. I spoke with Dr. Rose who will see the patient in the office later today to explain the biopsy results. The patient never asked about his biopsy results and I did not discuss these with him. FINAL DIAGNOSES: 1. Pneumothorax, status post lung biopsy. 2. Adenocarcinoma of the lungs. 3. Atrial fibrillation. MEDICATIONS: 1. Apixaban 5 mg b.i.d. 2. Dronedarone 400 mg b.i.d. 3. Magnesium oxide 400 mg daily. CC: Karin Rose MD* [id number]/[facility] #: [id number] [facility]
== END 2016-09-21 12:05 | disposition home or self-care (01) | DRG 200 ==
LOC: SP 12:27 → SSU 15:45 → OBSVTOIN 09-20 15:45
PROVIDERS: ADMIT Internal Medicine; ATTEND Internal Medicine
PROC: 0W9930Z Drainage of Right Pleural Cavity with Drainage Device, Percutaneous Approach (ICD-10-PCS; 2016-09-19)
PROC: 0BBC3ZX Excision of Right Upper Lung Lobe, Percutaneous Approach, Diagnostic (ICD-10-PCS; 2016-09-19)
PROC: 0W9930Z Drainage of Right Pleural Cavity with Drainage Device, Percutaneous Approach (ICD-10-PCS; principal; 2016-09-20)
PROC: 0WP9X0Z Removal of Drainage Device from Right Pleural Cavity, External Approach (ICD-10-PCS; 2016-09-20)
DX: J95.811 Postprocedural pneumothorax (principal); C34.11 Malignant neoplasm of upper lobe, right bronchus or lung; I48.0 Paroxysmal atrial fibrillation; F17.210 Nicotine dependence, cigarettes, uncomplicated; Z95.0 Presence of cardiac pacemaker; R91.1 Solitary pulmonary nodule; M47.812 Spondylosis without myelopathy or radiculopathy, cervical region; K21.9 Gastro-esophageal reflux disease without esophagitis; N40.0 Benign prostatic hyperplasia without lower urinary tract symptoms; M19.90 Unspecified osteoarthritis, unspecified site; I83.93 Asymptomatic varicose veins of bilateral lower extremities; Y84.8 Other medical procedures as the cause of abnormal reaction of the patient, or of later complication, without mention of misadventure at the time of the procedure
CPT/HCPCS: 32551; 36415; 71010; 71020; 75989; 77012; 85049; 85610; 85730; 87070; 87102; 87116; 87205; 87206; 88172; 88173; 88305; 88341; 88342; A9270-GY; G0378; J2270; J3010

== ENCOUNTER 2016-11-01 12:58 | Day surgery (SDC) | payer MEDICARE ==
[~2016-11-01 12:58] MED LIST: Buffered Lidocaine 1% SYRIN* 5 ML/SYR SYRINGE ONE; Famotidine IV* 10 MG/ML 2 ML (20 mg) IV ONE; Famotidine IV* 10 MG/ML 2 ML (20 mg) ONE; Metoclopramide TAB* 10 MG ONE; Metoclopramide TAB* 10 MG PO ONE
[2016-11-01] MEDS ORDERED: Lidocaine 2% PF * 5 ML VIAL ONE (14:06)
[2016-11-01] MEDS ORDERED: Dexamethasone IV* 4 MG/ML 1 ML (4 MG) ONE (14:06)
[2016-11-01] MEDS ORDERED: KETAMINE HCL* 50 MG/ML 10 ML VIAL ONE (14:06)
[2016-11-01] MEDS ORDERED: Ondansetron INJ* 2 MG/ML VIAL ONE (14:06)
[2016-11-01] MEDS ORDERED: fentaNYL* 50 MCG/ML 2 ML VIAL (100 MCG VIAL) ONE (14:06)
[2016-11-01] MEDS ORDERED: Cisatracurium* 2 MG/ML MDV 5 ML ONE (14:06)
[2016-11-01] MEDS ORDERED: Propofol* 10 MG/ML 20 ML BTL IV PUSH ONE (14:06)
[2016-11-01] MEDS ORDERED: Midazolam* 1 MG/ML 5 ML VIAL (5 MG) ONE (14:07)
[2016-11-01] MEDS ORDERED: oxyCODONE/Acetamin 5/325 MG* TAB PO PRN (15:16)
[2016-11-01] MEDS ORDERED: fentaNYL* 50 MCG/ML 2 ML VIAL (100 MCG VIAL) IV PRN (15:16)
[2016-11-01] MEDS ORDERED: Ondansetron ODT TAB* 4 MG PO PRN (15:16)
[2016-11-01] MEDS ORDERED: Levalbuterol 0.63MG/3ML NEB INH PRN (15:16)
[2016-11-01 17:29] VITALS: BP 136/69
--- NOTE | 2016-11-02 06:09 | PRO ---
BRONCHOSCOPY REPORT: DATE OF PROCEDURE: 11/01/16 PROCEDURE PERFORMED: Bronchoscopy with endobronchial ultrasound-guided fine- needle aspiration for lung cancer staging. ANESTHESIA: General anesthesia. ANESTHESIOLOGIST: Dr. Narayanan, refer to anesthesiologist's note for further details. INDICATION FOR THE PROCEDURE, PREPROCEDURAL DIAGNOSIS: Recently diagnosed adenocarcinoma of right lung for staging. DESCRIPTION OF PROCEDURE: Informed consent was obtained from the patient prior to the procedure after all the risks and benefits were thoroughly explained. The patient was recently diagnosed with adenocarcinoma of right upper lobe, staging EBUS was scheduled. The patient was lying supine on operating room table. Appropriate time-out was agreed on by attending staff. A flexible Olympus bronchoscope was utilized for airway inspection. No endobronchial lesions were noted. Thick secretions were noted and were suctioned out. Flexible bronchoscope was then withdrawn and EBUS bronchoscope was inserted through ET tube. Staging was begun with left-sided lymph nodes. L4 was sampled with 3 passes. Lymphatic tissue was noted. No malignant cells were noted. Station 7 was accessed with 4 passes, adequate lymphatic tissue seen on rapid on- site evaluation. Station R4 was sampled with 2 passes, adequate lymphatic tissue was seen. No malignant cells were noted. Station R10 was sampled with 5 passes. Lymphatic tissue was seen and no malignant cells were noted. The patient tolerated the procedure well. The patient was extubated and seen in Recovery in optimal condition. [id number]/[facility] #: [id number] MTDD
== END 2016-11-01 18:08 | disposition home or self-care (01) ==
LOC: OR 12:58
PROVIDERS: ATTEND Internal Medicine
DX: C34.11 Malignant neoplasm of upper lobe, right bronchus or lung (principal); I48.91 Unspecified atrial fibrillation; Z79.01 Long term (current) use of anticoagulants; F17.210 Nicotine dependence, cigarettes, uncomplicated
CPT/HCPCS: 88172; 88173; 88305; A9270-GY; J1100; J2250; J2405; J2704; J3010